=== PATIENT | female | born 1990 | race Caucasian/White ===

== ENCOUNTER 2017-02-04 13:26 | Emergency (ER) | payer OTHER ==
[2017-02-04 13:41] VITALS: RESP 18; O2SAT 97
[2017-02-04] MEDS ORDERED: NS 1,000 ML IV ONE (13:41)
[2017-02-04 13:54] LABS: % IMMATURE GRANULYOCYTES 0.6 % (0.0-1.1); ABSOLUTE IMMATURE GRANULOCYTES 0.06 10^3/uL (0.00-0.10); ADD DIFF? NO; ADD MORPH? NO; ADD SCAN? NO; ATYPICAL LYMPHOCYTE FLAG 10 (0-99); FRAGMENT RBC FLAG 0 (0-99); HEMATOCRIT 41.3 % (38.0-47.0); HEMOGLOBIN 14.1 g/dL (12.6-16.3); LEFT SHIFT FLG 0 (0-99); LIPEMIA HEMOLYSIS FLAG 90 (0-99); MEAN CELL HEMOGLOBIN 30.7 pg (27.9-34.1); MEAN CELL HEMOGLOBIN CONCENTR. 34.1 g/dL (32.4-36.7); MEAN PLATELET VOLUME 9.8 fL (8.7-11.7); PLATELET CLUMPS FLAG 20 (0-99); PLATELET COUNT 260 10^3/uL (150-400); RED BLOOD CELL COUNT 4.59 10^6/uL (4.18-5.33); RED CELL DISTRIBUTION WIDTH 12.9 % (11.5-15.2)
[2017-02-04] MEDS ORDERED: HYDROmorphONE/DILAUDID 1 MG/ML SYR IVP ONE ×2 (13:59→14:36)
[2017-02-04] MEDS ORDERED: ONDANSETRON 4 MG/2 ML VIAL IVP ONE (13:59)
[2017-02-04 14:10] LABS: ANION GAP 8 mEq/L (8-16); CALCIUM 8.6 mg/dL (8.5-10.4); CARBON DIOXIDE 25 mEq/l (22-31); CHLORIDE 104 mEq/L (97-110); CREATININE 0.8 mg/dL (0.6-1.0); GLOMERULAR FILTRATION RATE > 60; GLUCOSE 77 mg/dL (70-100); POTASSIUM 4.1 mEq/L (3.5-5.2); SODIUM 137 mEq/L (134-144)
[2017-02-04 14:30] LABS: COLOR YELLOW; LEUKOCYTE ESTERASE,URINE NEGATIVE (NEGATIVE); NITRITE,URINE NEGATIVE (NEGATIVE); PH,URINE 5.5 (5.0-7.5)
--- NOTE | 2017-02-04 15:22 | EDPHY ---
H & P Stated Complaint: recent ovarain donation Tuesday - since tuesday- pain/bloating Source: Patient Exam Limitations: No limitations - Personal History LMP (Females 10-55): Over 28 Days Ago Current Tetanus Diphtheria and Acellular Pertussis (TDAP): Yes - Medical/Surgical History Hx Asthma: No Hx Chronic Respiratory Disease: No Hx Diabetes: No Hx Cardiac Disease: No Hx Renal Disease: No Hx Cirrhosis: No Hx Alcoholism: No Hx HIV/AIDS: No Hx Splenectomy or Spleen Trauma: No Other PMH: ortho/ TA - Family History Significant Family History: No pertinent family hx - Social History Smoking Status: Never smoked Alcohol Use: Occasionally Drug Use: None Time Seen by Provider: 02/04/17 13:35 HPI/ROS: This patient is brought in by her mother for pelvic pain and bloating. She explains that she flew to [place] to be an egg donor for assisted reproductive technology having taken Lupron and 2 other Pro fertility medications prior to the procedure that occurred on Tuesday, 5 days prior to arrival without evidence of complication at that time. However, the next day-4 days prior to arrival she noticed some bloating and noticed that the pain since she usually wears no longer fit because of the bloating. Since then the symptoms have progressed with increase in bloating to the pelvic region associated with 7-8/10 pain she describes as achy in nature radiating to her back. She spoke with Dr. basilio grayson her fertility physician in [place] on Tuesday, 2 days prior to arrival and he started her on Cabergoline - a dopaminergic medication to decrease her prolactin levels suspecting that she may have early ovarian hyperstimulation syndrome. She has had 3 doses of this 0.5 mg daily. She states that the pain worsens with movement. She tried Tylenol for discomfort without improvement and ibuprofen 2 days ago without improvement but was told by her fertility specialist to avoid NSAIDs. ROS: No fevers or chills. No other constitutional symptoms HEENT: No URI symptoms or other complaints Pulmonary: No dyspnea Cardiovascular: She does report mild lightheadedness today. No chest pain or heart palpitations. No lower extremity swelling or pain GI: She has nausea but no vomiting. She has diminished appetite. She has constipation with no bowel movement over the past 2 days. : No dysuria. No frequency Integumentary: No rash Neuro: No complaints 10 point ROS is otherwise negative (Amrit Swan) - Social History Additional Social History: She is accompanied by her mother who drove her in (Amrit Swan) - Physical Exam Exam: General Appearance: Pleasant petite 26 year old female Alert, no distress. Eyes: Pupils equal and round no pallor or injection. ENT, Mouth: Mucous membranes moist. Respiratory: There are no retractions, lungs are clear to auscultation. Cardiovascular: Regular rate and rhythm. Gastrointestinal: She has mildly distended/bloating to the lower belly/pelvic region with suprapubic tenderness and fullness but no guarding or rebound tenderness. No upper belly tenderness or organomegaly. Back: No CVA tenderness is appreciated. Neurological: GCS 15 Skin: Warm and dry, no rashes. Musculoskeletal: Neck is supple nontender. Extremities are symmetrical, full range of motion. Psychiatric: Mood and affect are normal DIFFERENTIAL DIAGNOSIS: After history and physical exam differential diagnosis was considered for ovarian hyperstimulation syndrome, constipation, UTI, ovarian cysts (Amrit Swan) Constitutional: Initial Vital Signs Temperature (C) 37.2 C 02/04/17 13:37 Heart Rate 88 02/04/17 13:37 Respiratory Rate 18 02/04/17 13:37 Blood Pressure 118/86 H 02/04/17 13:37 O2 Sat (%) 97 02/04/17 13:37 O2 Delivery Mode Room Air Allergies/Adverse Reactions: No Known Allergies Allergy (Unverified 04/14/14 09:57) Home Medications: Medication Instructions Recorded Cabergoline 02/04/17 Hydrocodone/APAP 5/325 [[place] 1 each PO Q4-6PRN PRN #10 tab 02/04/17 5/325 (*)] Ondansetron Odt [Zofran Odt] 4 mg PO Q4PRN PRN #4 tab 02/04/17 Medical Decision Making - Diagnostics Imaging Results: Imaging Impressions Pelvic/Renal Ultrasound 02/04/17 14:38 Impression: 1. Hyperstimulated enlarged ovaries with increased number of bilateral follicles present. 2. Mild to moderate amount of free fluid within the pelvis as well as around the liver and spleen. Findings discussed with Dr. Yovany Mayers at 15:40 hour, 02/04/2017. Ultrasound reviewed by me and discussed with Dr. Saucedo shows the ovaries to be 9 cm in size. Right ovary volume is 196 cc, left ovary volume is 251. Mild to moderate free fluid in the pelvis up to around the liver and spleen. Lots of follicles in both ovaries. Good blood flow to both ovaries. (Yovany Mayers) ED Course/Re-evaluation: IV Zofran with resolution of nausea Normal saline bolus Dilaudid 0.2 mg x2 with partial relief of discomfort Complete pelvic ultrasound is ordered Discussion: Patient appears clinically well with normal vital signs. She does not have a surgical abdomen at this time. She warrants further evaluation for possible OHSS with plan to discuss the ultrasound results with her fertility specialist and OBGYN if necessary to finalize treatment plan once the sonogram results I signed this patient over to Dr. Mayers at 3:25 p.m.. He will follow up with her ultrasound results, pending labs and finalize disposition. (Amrit Swan) I placed a phone call to Dr. Potts [phone] at 3:[address] Potts is with the patient and will call me back At 3:55 p.m. I re-evaluated the patient. She stable. I informed her of ultrasound results and that we are awaiting a return phone call from 4:30 p.m. I called back and discussed laboratory and imaging study results with him. He feels that these are normal and the patient is stable to be discharged. He will follow up with the patient this evening. He asked me to ask the patient to call him any time. He recommended trying to stay with Tylenol and ibuprofen to prevent constipation. 4:45 p.m. I have discussed this with the patient and her mother. They expressed understanding and agreement (Yovany Mayers) Differential Diagnosis: I considered infection and elevated white blood cell count. I considered electrolyte and renal abnormalities. I considered torsion of the ovary. I considered moderate to severe ascites (Yovany Mayers) - Data Points Laboratory Results: Laboratory Results 02/04/17 13:50 02/04/17 13:50 02/04/17 02/04/17 02/04/17 14:25 13:50 13:50 WBC RBC Hgb Hct MCV MCH MCHC RDW Plt Count MPV Neut % (Auto) Lymph % (Auto) [place] % (Auto) Eos % (Auto) Baso % (Auto) Nucleat RBC Rel Count Absolute Neuts (auto) Absolute Lymphs (auto) Absolute Monos (auto) Absolute Eos (auto) Absolute Basos (auto) Absolute Nucleated RBC Immature Gran % Immature Gran # Sodium 137 mEq/L mEq/L (134-144) Potassium 4.1 mEq/L mEq/L (3.5-5.2) Chloride 104 mEq/L mEq/L (97-110) Carbon Dioxide 25 mEq/l mEq/l (22-31) Anion Gap 8 mEq/L mEq/L (8-16) BUN 18 mg/dL mg/dL (7-23) Creatinine 0.8 mg/dL mg/dL (0.6-1.0) Estimated GFR > 60 Glucose 77 mg/dL mg/dL (70-100) Calcium 8.6 mg/dL mg/dL (8.5-10.4) Beta HCG, Qual NEGATIVE Urine Color YELLOW Urine Appearance CLEAR Urine pH 5.5 (5.0-7.5) Ur Specific [place] 1.025 (1.002-1.030) Urine Protein NEGATIVE (NEGATIVE) Urine Ketones NEGATIVE (NEGATIVE) Urine Blood NEGATIVE (NEGATIVE) Urine Nitrate NEGATIVE (NEGATIVE) Urine Bilirubin NEGATIVE (NEGATIVE) Urine Urobilinogen 0.2 EU EU (0.2-1.0) Ur Leukocyte Esterase NEGATIVE (NEGATIVE) Urine Glucose NEGATIVE (NEGATIVE) 02/04/17 13:50 WBC 9.49 10^3/uL 10^3/uL (3.80-9.50) RBC 4.59 10^6/uL 10^6/uL (4.18-5.33) Hgb 14.1 g/dL g/dL (12.6-16.3) Hct 41.3 % % (38.0-47.0) MCV 90.0 fL fL (81.5-99.8) MCH 30.7 pg pg (27.9-34.1) MCHC 34.1 g/dL g/dL (32.4-36.7) RDW 12.9 % % (11.5-15.2) Plt Count 260 10^3/uL 10^3/uL (150-400) MPV 9.8 fL fL (8.7-11.7) Neut % (Auto) 73.7 % % (39.3-74.2) Lymph % (Auto) 19.4 % % (15.0-45.0) [place] % (Auto) 5.8 % % (4.5-13.0) Eos % (Auto) 0.1 % L % (0.6-7.6) Baso % (Auto) 0.4 % % (0.3-1.7) Nucleat RBC Rel Count 0.0 % % (0.0-0.2) Absolute Neuts (auto) 6.99 10^3/uL H 10^3/uL (1.70-6.50) Absolute Lymphs (auto) 1.84 10^3/uL 10^3/uL (1.00-3.00) Absolute Monos (auto) 0.55 10^3/uL 10^3/uL (0.30-0.80) Absolute Eos (auto) 0.01 10^3/uL L 10^3/uL (0.03-0.40) Absolute Basos (auto) 0.04 10^3/uL 10^3/uL (0.02-0.10) Absolute Nucleated RBC 0.00 10^3/uL 10^3/uL (0-0.01) Immature Gran % 0.6 % % (0.0-1.1) Immature Gran # 0.06 10^3/uL 10^3/uL (0.00-0.10) Sodium Potassium Chloride Carbon Dioxide Anion Gap BUN Creatinine Estimated GFR Glucose Calcium Beta HCG, Qual Urine Color Urine Appearance Urine pH Ur Specific [place] Urine Protein Urine Ketones Urine Blood Urine Nitrate Urine Bilirubin Urine Urobilinogen Ur Leukocyte Esterase Urine Glucose Medications Given: Discontinued Medications Hydromorphone HCl (Dilaudid) 0.2 mg IVP EDNOW ONE Stop: 02/04/17 14:00 Last Admin: 02/04/17 14:12 Dose: 0.2 mg Hydromorphone HCl (Dilaudid) 0.2 mg IVP EDNOW ONE Stop: 02/04/17 14:37 Last Admin: 02/04/17 14:42 Dose: 0.2 mg Sodium Chloride (Ns) 1,000 mls @ 0 mls/hr IV EDNOW ONE; Wide Open PRN Reason: Protocol Stop: 02/04/17 13:42 Last Admin: 02/04/17 13:53 Dose: 1,000 mls Ondansetron HCl (Zofran) 4 mg IVP EDNOW ONE Stop: 02/04/17 14:00 Last Admin: 02/04/17 14:13 Dose: 4 mg Departure - Departure Disposition: Home, Routine, Self-Care Clinical Impression: Cyst of ovary, Abdominal pain Condition: Good Instructions: Acute Abdominal Pain (ED) Additional Instructions: Continue medications as prescribed. Tylenol or hydrocodone for pain. Watch out for constipation. Zofran if needed for nausea. Return for worsening symptoms. Use as resource to discuss changes in condition Referrals: NONE *PRIMARY CARE P,. [Unknown] - As per Instructions Stand Alone Forms: Work Excuse Prescriptions: Hydrocodone/APAP 5/325 [[place] 5/325 (*)] 1 each PO Q4-6PRN PRN #10 tab PRN Reason: Pain, Moderate Ondansetron Odt [Zofran Odt] 4 mg PO Q4PRN PRN #4 tab PRN Reason: Nausea/Vomiting, Use 1st
[2017-02-04 17:18] VITALS: TEMP 97
[2017-02-04 17:32] VITALS: BP 101/60; PULSE 74
== END 2017-02-04 17:16 | disposition home or self-care (01) ==
LOC: CED 13:26
DX: N83.201 Unspecified ovarian cyst, right side (principal); E86.9 Volume depletion, unspecified
CPT/HCPCS: 76856-PO; 80048-PO; 81003-PO; 84703-PO; 85025-PO; 96374; J1170; J2405